=== PATIENT | female | born 1980 | race Caucasian/White ===

== ENCOUNTER 2023-02-15 16:05 | Emergency (ER) | payer OTHER ==
[~2023-02-15] VITALS: Ht 160 cm; Wt 57.2 kg
== END 2023-02-15 20:55 | disposition home or self-care (01) ==
LOC: ER 16:05
DX: J06.9 Acute upper respiratory infection, unspecified (principal); Z20.822 Contact with and (suspected) exposure to COVID-19

== ENCOUNTER 2023-08-30 13:18 | Emergency (ER) | payer OTHER ==
[~2023-08-30] VITALS: Ht 157.5 cm; Wt 68.0 kg
[2023-08-30 20:26] LABS: HEMATOCRIT 38.3 % (36.0-45.00); HEMOGLOBIN 12.9 g/dL (12.0-15.00); MEAN CELL VOLUME 91.5 fL (80.00-100.00); MEAN CORPUSCULAR HEMOGLOBIN 30.9 pg (27.00-32.0); MEAN CORPUSCULAR HGB CONC 33.8 g/dl (32.0-36.0); PLATELET COUNT 282 K/uL (150-450); RED BLOOD COUNT 4.19 M/uL (4.00-6.00); RED CELL DISTRIBUTION WIDTH 13.6 % (11.5-14.5)
[2023-08-30] MEDS ORDERED: BENADRYL ALLERG25 MG PO (21:06)
[2023-08-30] MEDS ORDERED: PEPCID AC20 MG PO (21:06)
[2023-08-30] MEDS ORDERED: MEDROLPACK PO (21:06)
== END 2023-08-30 22:05 | disposition home or self-care (01) ==
LOC: ER 13:19
PROVIDERS: Nurse Practitioner Family
DX: T78.40XA Allergy, unspecified, initial encounter (principal); X58.XXXA Exposure to other specified factors, initial encounter; Y92.89 Other specified places as the place of occurrence of the external cause